=== PATIENT | female | born 1945 | race Two or more races ===

== ENCOUNTER 2019-08-01 16:01 | Emergency (ER) | payer MEDICARE ==
[~2019-08-01] VITALS: Ht 162.6 cm; Wt 62.8 kg
[2019-08-01 16:06] VITALS: BP 160/87
--- NOTE | 2019-08-01 16:50 | NUR ---
THIS IS A 73 YO F W/ C/O RIGHT UPPER ABD PAIN X3. LAST BM 2 DAYS AGO. PATIENT STATES SHE FEELS BLOATED. PATIENTS RESPIRTATIONS ARE EVEN AND UNLABORED. PATIENT IS IN NO ACUTE DISTRESS. RESTING ON GURNEY WITH FAMILY AT BEDSIDE. CALL LIGHT IN REACH.
--- NOTE | 2019-08-01 17:02 | NUR ---
PATIENT TO RADIOLOGY.
[2019-08-01 17:16] LABS: ALANINE AMINOTRANSFERASE 75 U/L (12-78); ALBUMIN 3.9 g/dL (3.4-5.0); ANION GAP 5 mmol/L (5-15); BASOPHILS # (AUTO) 0.03 x10^3/uL (0-0.1); BASOPHILS % (AUTO) 0 % (0-1); CALCIUM 9.7 mg/dL (8.5-10.1); CHLORIDE 103 mmol/L (98-107); EOSINOPHILS # (AUTO) 0.14 x10^3/uL (0-0.4); EOSINOPHILS % (AUTO) 2 % (1-7); LYMPHOCYTES # (AUTO) 0.65 x10^3/uL (1-3.4); LYMPHOCYTES % (AUTO) 7 % (22-44); MD NO; MEAN CORPUSCULAR HEMOGLOBIN 29.2 pg (27.0-34.8); MEAN CORPUSCULAR HGB CONC 33.1 g/dL (32.4-35.8); MEAN CORPUSCULAR VOLUME 88.1 fL (80-100); MEAN PLATELET VOLUME 8.6 fL (7.4-10.4); MONOCYTES # (AUTO) 0.36 x10^3/uL (0.2-0.8); MONOCYTES % (AUTO) 4 % (2-9); NEUTROPHILS % (AUTO) 87 % (42-75); PLATELET COUNT 210 x10^3/uL (130-400); RED BLOOD COUNT 5.55 x10^6/uL (3.82-5.3); RED CELL DISTRIBUTION WIDTH 12.8 % (9.6-15.2)
[2019-08-01 17:19] LABS: ALKALINE PHOSPHATASE 84 U/L (45-117); BILIRUBIN,TOTAL 0.6 mg/dL (0.2-1.0); CREATININE 0.79 mg/dL (0.55-1.02)
--- NOTE | 2019-08-01 17:28 | NUR ---
URINE COLLECTED AND SENT TO LAB.
[2019-08-01 17:34] LABS: CULTURE INDICATED? NO; MICROSCOPIC NOT IND
--- NOTE | 2019-08-01 18:42 | NUR ---
Patient given discharge instructions and they have confirmed that they understand the instructions. Patient ambulatory with steady gait.
== END 2019-08-01 18:43 | disposition home or self-care (01) ==
LOC: ED 16:53
DX: R10.84 Generalized abdominal pain (principal); E11.65 Type 2 diabetes mellitus with hyperglycemia; I10 Essential (primary) hypertension; E78.00 Pure hypercholesterolemia, unspecified
CPT/HCPCS: 36415; 74176; 80053; 81003; 83690; 85025; 99284